=== PATIENT | male | born 1955 | race Caucasian/White ===

== ENCOUNTER 2023-05-17 15:36 | Inpatient (IN) | payer MEDICARE, BC ==
[~2023-05-17] VITALS: Ht 185.4 cm; Wt 110.5 kg
[2023-05-17] MEDS ORDERED: heparin 10,000 units/1 ML INJ IV ONE ×2 (17:00)
[2023-05-17 17:29] LABS: BASOPHILS # (AUTO) 0.1 X10'3 (0-0.2); BASOPHILS % (AUTO) 0.7 % (0-1); EOSINOPHILS # (AUTO) 0.1 X10'3 (0-0.9); EOSINOPHILS % (AUTO) 1.5 % (0-6); HEMATOCRIT 48.4 % (42.0-52.0); HEMOGLOBIN 16.4 g/dl (14.0-17.9); LYMPHOCYTES # (AUTO) 1.6 X10'3 (1.1-4.8); LYMPHOCYTES % (AUTO) 20.1 % (21-51); MEAN CORPUSCULAR HEMOGLOBIN 29.4 PG (27.0-31.0); MEAN CORPUSCULAR HGB CONC 33.9 g/dL (33.0-36.5); MEAN CORPUSCULAR VOLUME 86.8 FL (78-98); MEAN PLATELET VOLUME 8.8 FL (7.4-10.4); MONOCYTES # (AUTO) 0.6 X10'3 (0-0.9); MONOCYTES % (AUTO) 8.2 % (2-12); NEUTROPHILS # (AUTO) 5.4 X10'3 (1.8-7.7); NEUTROPHILS % (AUTO) 69.5 % (42-75); PLATELET COUNT 194 X10'3 (140-440); RED BLOOD COUNT 5.57 X10'6 (4.70-6.10); WHITE BLOOD COUNT 7.7 X10'3 (4.5-11.0)
[2023-05-17] MEDS: heparin 25,000 UNIT/250ml bag 250 ML IV PRN (17:32)
[2023-05-17 17:47] LABS: APTT 28 SECONDS (22-32); INR 0.9 INR; PROTHROMBIN TIME 10.2 SECONDS (9.0-12.0)
[2023-05-17 17:52] LABS: ALANINE AMINOTRANSFERASE 38 U/L (12-78); ALBUMIN 3.7 G/DL (3.4-5.0); ALBUMIN/GLOBULIN RATIO 1.1 (1.1-1.5); ALKALINE PHOSPHATASE 41 IU/L (46-116); ANION GAP 7 (8-16); ASPARTATE AMINO TRANSFERASE 22 U/L (10-37); BILIRUBIN,TOTAL 1.7 MG/DL (0.1-1.0); BLOOD UREA NITROGEN 11 MG/DL (7-18); BUN/CREATININE RATIO 9.9 (10.0-20.0); CALCIUM 8.8 MG/DL (8.5-10.1); CHLORIDE 104 MMOL/L (99-107); CREATININE 1.11 MG/DL (0.60-1.10); GLUCOSE 103 MG/DL (70-104); POTASSIUM 3.8 MMOL/L (3.5-5.1); SODIUM 137 MMOL/L (135-145); TOTAL CARBON DIOXIDE 26.2 MMOL/L (24-32); eCRCL 74 ML/MIN; eGFR 66 ML/MIN
[2023-05-17 18:01] LABS: MAGNESIUM 2.2 MG/DL (1.5-2.4); PRO BRAIN NATRIURETIC PEPTIDE < 30 PG/ML (0-125)
[2023-05-17] MEDS ORDERED: magnesium Cl slow-release 64mg tablet PO PRN (18:10)
[2023-05-17] MEDS ORDERED: magnesium 4gm in 100ml NS 100 ML IV PRN (18:10)
[2023-05-17] MEDS ORDERED: mag hydrox/Alum hydrox/simeth 30ml oral suspension PO PRN (18:10)
[2023-05-17] MEDS ORDERED: acetaminophen 325mg tablet PO PRN (18:10)
[2023-05-17] MEDS ORDERED: potassium Cl 40MEQ/1/2NS 520ml 520 ML IV PRN (18:10)
[2023-05-17] MEDS ORDERED: ondansetron/PF 4mg/2ml inj IV PRN (18:10)
[2023-05-17] MEDS ORDERED: magnesium hydroxide 30ml (MOM) UD suspension PO PRN (18:10)
[2023-05-17] MEDS ORDERED: magnesium 2GM in 50ml NS 50 ML IV PRN (18:10)
[2023-05-17] MEDS ORDERED: potassium Cl 20 mEq SR tablet PO PRN ×2 (18:10)
[2023-05-17] MEDS ORDERED: regadenoson 0.4mg/5ml syringe IV PRN (18:25)
[2023-05-17] MEDS ORDERED: aminophylline 250mg/10ml inj. IV PRN (18:25)
[2023-05-17] MEDS ORDERED: metoprolol tartrate 1mg/ml inj IV PRN (18:25)
[2023-05-17] MEDS ORDERED: nitroGLYCERIN 0.4mg SUBLingual tab SL PRN (18:25)
[2023-05-17] MEDS: K and/or MAG REPLACEMENT MC SCH (20:00)
[2023-05-17 20:19] LABS: BILIRUBIN,URINE NEGATIVE (Neg); CLARITY,URINE CLEAR (Clear); COLOR,URINE YELLOW (Yellow); GLUCOSE, URINE NEGATIVE (Neg); KETONES,URINE NEGATIVE (Neg); LEUKOCYTE ESTERASE ,URINE NEGATIVE (Neg); NITRITES, URINE NEGATIVE (Neg); OCCULT BLOOD,URINE TRACE-INTACT (Neg); PROTEIN,URINE NEGATIVE (Neg); UROBILINOGEN,URINE 0.2 E.U/dL (0.2-1.0)
[2023-05-17 20:21] LABS: UA COLLECTION TYPE CLN CATCH MIDSTREAM
[2023-05-17] MEDS: docusate sod 100mg capsule PO SCH (20:34)
[2023-05-17 20:41] LABS: BACTERIA,URINE NONE SEEN /HPF (Neg); MUCUS STRANDS NONE SEEN /LPF (Neg); RBC,URINE 0-2 /HPF (0-2); SQUAMOUS EPITHELIAL CELL,UR FEW /LPF (FEW); WBC,URINE 0-4 /HPF (0-4)
[2023-05-17 22:00] VITALS: BP 135/96; PULSE 77; RESP 18; TEMP 98; O2SAT 95
[2023-05-18] VITALS (11 sets, daily range): BP systolic 98–115; BP diastolic 66–85; PULSE 61–88; RESP 12–18; TEMP 97.5–98.8; O2SAT 92–98
[2023-05-18] MEDS ORDERED: heparin 10,000 units/1 ML INJ IV PRN (00:25)
[2023-05-18 06:12] LABS: BASOPHILS % (AUTO) 0.7 % (0-1); EOSINOPHILS # (AUTO) 0.3 X10'3 (0-0.9); HEMATOCRIT 46.6 % (42.0-52.0); LYMPHOCYTES # (AUTO) 2.1 X10'3 (1.1-4.8); LYMPHOCYTES % (AUTO) 31.2 % (21-51); MEAN CORPUSCULAR HEMOGLOBIN 29.8 PG (27.0-31.0); MEAN CORPUSCULAR HGB CONC 34.3 g/dL (33.0-36.5); MEAN CORPUSCULAR VOLUME 86.8 FL (78-98); MEAN PLATELET VOLUME 8.8 FL (7.4-10.4); MONOCYTES # (AUTO) 0.6 X10'3 (0-0.9); MONOCYTES % (AUTO) 9.2 % (2-12); NEUTROPHILS # (AUTO) 3.6 X10'3 (1.8-7.7); NEUTROPHILS % (AUTO) 54.9 % (42-75); PLATELET COUNT 176 X10'3 (140-440); RED BLOOD COUNT 5.36 X10'6 (4.70-6.10); RED CELL DISTRIBUTION WIDTH 14.1 % (11.5-14.5); WHITE BLOOD COUNT 6.6 X10'3 (4.5-11.0)
[2023-05-18 06:32] LABS: ALANINE AMINOTRANSFERASE 35 U/L (12-78); ALBUMIN 3.3 G/DL (3.4-5.0); ALKALINE PHOSPHATASE 45 IU/L (46-116); ANION GAP 6 (8-16); ASPARTATE AMINO TRANSFERASE 21 U/L (10-37); BILIRUBIN,TOTAL 1.8 MG/DL (0.1-1.0); BLOOD UREA NITROGEN 13 MG/DL (7-18); BUN/CREATININE RATIO 10.5 (10.0-20.0); CALCIUM 8.8 MG/DL (8.5-10.1); CHLORIDE 105 MMOL/L (99-107); CREATININE 1.24 MG/DL (0.60-1.10); GLUCOSE 112 MG/DL (70-104); POTASSIUM 4.1 MMOL/L (3.5-5.1); SODIUM 139 MMOL/L (135-145); TOTAL CARBON DIOXIDE 27.7 MMOL/L (24-32); TOTAL PROTEIN 6.5 G/DL (6.4-8.2); eCRCL 64 ML/MIN; eGFR 58 ML/MIN
[2023-05-18] MEDS: docusate sod 100mg capsule PO SCH ×2 (07:16→20:00)
[2023-05-18] MEDS: K and/or MAG REPLACEMENT MC SCH ×2 (07:16→20:00)
[2023-05-18] MEDS ORDERED: midazolam 1 mg/ML 2ml injection ONE ×2 (14:47→15:12)
[2023-05-18] MEDS ORDERED: fentaNYL/PF 50MCG/1 ML 2ML syringe ONE (14:47)
[2023-05-18] MEDS ORDERED: iohexol 350MG/ML 100ml bottle IV ONE (14:48)
[2023-05-18] MEDS ORDERED: iohexol 350 MG/ML 50ML vial IV ONE (14:48)
[2023-05-18] MEDS ORDERED: LIDOcaine 1% (10mg/ml)w/preservative inj. 20ml MDV ONE ×2 (14:48→15:17)
[2023-05-18] MEDS: heparin 25,000 UNIT/250ml bag 250 ML IV PRN (14:56)
[2023-05-18] MEDS ORDERED: proCHLORperazine 10 MG/2 ml inj ONE (15:05)
[2023-05-18] MEDS ORDERED: ondansetron/PF 4mg/2ml inj IV PRN (16:20)
[2023-05-18] MEDS ORDERED: OXAZEpam 15mg capsule PO PRN (16:20)
[2023-05-18] MEDS ORDERED: proCHLORperazine 10 MG/2 ml inj IV PRN (16:20)
[2023-05-18] MEDS ORDERED: HYDROcodone/acetaminophen 10/325mg tab PO PRN (16:25)
[2023-05-18] MEDS: HYDROcodone/acetaminophen 5mg/325mg tablet PO PRN ×2 (17:36→22:23)
[2023-05-19 02:00] VITALS: BP 92/61; PULSE 73; RESP 16; TEMP 97.9; O2SAT 95
[2023-05-19 06:00] VITALS: BP 93/68; PULSE 92; RESP 16; TEMP 98.1; O2SAT 95
[2023-05-19 07:50] LABS: EOSINOPHILS # (AUTO) 0.1 X10'3 (0-0.9); HEMATOCRIT 45.8 % (42.0-52.0); HEMOGLOBIN 15.8 g/dl (14.0-17.9); LYMPHOCYTES # (AUTO) 1.5 X10'3 (1.1-4.8); MEAN CORPUSCULAR VOLUME 86.4 FL (78-98); NEUTROPHILS # (AUTO) 7.3 X10'3 (1.8-7.7); NEUTROPHILS % (AUTO) 73.6 % (42-75); RED BLOOD COUNT 5.31 X10'6 (4.70-6.10)
[2023-05-19 07:52] LABS: BASOPHILS % (AUTO) 0.3 % (0-1); EOSINOPHILS % (AUTO) 0.9 % (0-6); LYMPHOCYTES % (AUTO) 15.4 % (21-51); MEAN CORPUSCULAR HEMOGLOBIN 29.7 PG (27.0-31.0); MEAN CORPUSCULAR HGB CONC 34.4 g/dL (33.0-36.5); MEAN PLATELET VOLUME 8.5 FL (7.4-10.4); MONOCYTES % (AUTO) 9.8 % (2-12); PLATELET COUNT 176 X10'3 (140-440)
[2023-05-19 08:00] VITALS: RESP 16; O2SAT 95
[2023-05-19] MEDS: docusate sod 100mg capsule PO SCH (08:00)
[2023-05-19] MEDS: K and/or MAG REPLACEMENT MC SCH (08:00)
[2023-05-19 09:07] LABS: ALANINE AMINOTRANSFERASE 39 U/L (12-78); ALBUMIN 3.3 G/DL (3.4-5.0); ALBUMIN/GLOBULIN RATIO 1.1 (1.1-1.5); ALKALINE PHOSPHATASE 43 IU/L (46-116); ANION GAP 8 (8-16); ASPARTATE AMINO TRANSFERASE 16 U/L (10-37); BILIRUBIN,TOTAL 1.7 MG/DL (0.1-1.0); BLOOD UREA NITROGEN 14 MG/DL (7-18); BUN/CREATININE RATIO 11.1 (10.0-20.0); CALCIUM 8.7 MG/DL (8.5-10.1); CHLORIDE 104 MMOL/L (99-107); CREATININE 1.26 MG/DL (0.60-1.10); GLUCOSE 106 MG/DL (70-104); POTASSIUM 4.3 MMOL/L (3.5-5.1); SODIUM 139 MMOL/L (135-145); TOTAL CARBON DIOXIDE 27.4 MMOL/L (24-32); TOTAL PROTEIN 6.4 G/DL (6.4-8.2); eCRCL 63 ML/MIN; eGFR 57 ML/MIN
== END 2023-05-19 11:30 | disposition home or self-care (01) | DRG 281 ==
LOC: ER 15:37 → ED HOLD 18:11 → PCU 3S 21:20
PROVIDERS: ADMIT Internal Medicine; ATTEND Internal Medicine
PROC: 4A023N7 Measurement of Cardiac Sampling and Pressure, Left Heart, Percutaneous Approach (ICD-10-PCS; principal; 2023-05-18)
PROC: B2111ZZ Fluoroscopy of Multiple Coronary Arteries using Low Osmolar Contrast (ICD-10-PCS; 2023-05-18)
PROC: B2151ZZ Fluoroscopy of Left Heart using Low Osmolar Contrast (ICD-10-PCS; 2023-05-18)
PROC: B41F1ZZ Fluoroscopy of Right Lower Extremity Arteries using Low Osmolar Contrast (ICD-10-PCS; 2023-05-18)
DX: R07.89 Other chest pain (principal); I21.A1 Myocardial infarction type 2; I45.2 Bifascicular block; Z87.891 Personal history of nicotine dependence; Z88.0 Allergy status to penicillin; Z90.49 Acquired absence of other specified parts of digestive tract; Z88.5 Allergy status to narcotic agent; Z91.030 Bee allergy status; Z80.1 Family history of malignant neoplasm of trachea, bronchus and lung; Z80.42 Family history of malignant neoplasm of prostate; Z80.0 Family history of malignant neoplasm of digestive organs
CPT/HCPCS: 36415; 71045; 80053; 81001; 83735; 83880; 84484; 85025; 85610; 85730; 87081; 93005; 93458; 99152; 99285; A6258; C1760; G0378; J0780; J1644; J2250; J3010; J3490; J7030; J7040; Q9967

== ENCOUNTER 2023-08-19 11:45 | Inpatient (IN) | payer MEDICARE, BC ==
[~2023-08-19] VITALS: Ht 185.4 cm; Wt 107.0 kg
[2023-08-19] MEDS ORDERED: NO HOME MEDS (13:25)
[2023-08-26] VITALS (20 sets, daily range): BP systolic 115–138; BP diastolic 71–97; PULSE 80–95; RESP 13–23; TEMP 96.7–98.7; O2SAT 94–99
[2023-08-26] MEDS: famotidine 20mg tablet PO ONE (05:30)
[2023-08-26] MEDS: clindamycin-Cleocin 900mg/D5W 50 ML IV ONE (05:30)
[2023-08-26 10:45] LABS: EOSINOPHILS # (AUTO) 0.2 X10'3 (0-0.9); MONOCYTES # (AUTO) 0.6 X10'3 (0-0.9); PRE OP WHITE BLOOD COUNT 7.2 10'3 (4.8-10.8)
[2023-08-26 10:46] LABS: BASOPHILS % (AUTO) 0.7 % (0-1); EOSINOPHILS % (AUTO) 2.7 % (0-6); LYMPHOCYTES # (AUTO) 1.6 X10'3 (1.1-4.8); LYMPHOCYTES % (AUTO) 22.7 % (21-51); MEAN CORPUSCULAR HEMOGLOBIN 29.5 PG (27.0-31.0); MEAN CORPUSCULAR HGB CONC 34.2 g/dL (33.0-36.5); MEAN CORPUSCULAR VOLUME 86.2 FL (78-98); MEAN PLATELET VOLUME 9.1 FL (7.4-10.4); MONOCYTES % (AUTO) 8.8 % (2-12); NEUTROPHILS # (AUTO) 4.7 X10'3 (1.8-7.7); NEUTROPHILS % (AUTO) 65.1 % (42-75); PRE OP HEMATOCRIT 47.9 % (42.0-52.0); PRE OP HEMOGLOBIN 16.4 g/dL (14.0-17.9); PRE OP PLATELET COUNT 195 X10'3 (140-440); RED BLOOD COUNT 5.55 X10'6 (4.70-6.10)
[2023-08-26 11:01] LABS: PRE OP PROTIME 10.3 SECONDS (9.0-12.0)
[2023-08-26 11:18] LABS: ALBUMIN 3.5 G/DL (3.4-5.0); ALKALINE PHOSPHATASE 42 IU/L (46-116); BLOOD UREA NITROGEN 13 MG/DL (7-18); CHLORIDE 106 MMOL/L (99-107); CREATININE 1.18 MG/DL (0.60-1.10); PRE OP ALT 29 U/L (30-65); PRE OP ANION GAP 13 (8-16); PRE OP AST 17 U/L (10-37); PRE OP BILIRUB, TOTAL 1.5 MG/DL (0.0-1.0); PRE OP GLUCOSE 104 MG/DL (70-104); PRE OP SODIUM 141 MMOL/L (135-145); TOTAL CARBON DIOXIDE 22.4 MMOL/L (24-32); eCRCL 68 ML/MIN; eGFR 61 ML/MIN
[2023-08-26] MEDS ORDERED: heparin 10,000 units/1 ML INJ ONE (11:18)
[2023-08-26] MEDS ORDERED: iohexol 300 MG/1 ML 50ml polymer ONE (11:18)
[2023-08-26] MEDS ORDERED: LIDOcaine 1% (10mg/ml) 2ml vial ONE (11:19)
[2023-08-26] MEDS ORDERED: sevoflurane 250ml liquid IH ONE (13:21)
[2023-08-26] MEDS ORDERED: fentaNYL /PF 50mcg/ml 5ml ampule ONE (13:23)
[2023-08-26] MEDS ORDERED: propofol inj 20 ML IV ONE (13:23)
[2023-08-26] MEDS ORDERED: MIDAZolam 1 MG/ML 5ML VIAL ONE (13:23)
[2023-08-26] MEDS: heparin 10,000 units/1 ML INJ IR ONE (14:00)
[2023-08-26] MEDS ORDERED: dexamethasone sod phosphate 4mg/ml inj. ONE (14:22)
[2023-08-26] MEDS ORDERED: rocuronium 10mg/ml inj IV ONE ×2 (14:22→15:41)
[2023-08-26] MEDS ORDERED: ePHEDrine 50MG/ML INJ. ONE (14:22)
[2023-08-26] MEDS ORDERED: ringers solution, lacted 1,000 ML IV SCH (14:55)
[2023-08-26] MEDS ORDERED: ondansetron/PF 4mg/2ml inj IV PRN (14:55)
[2023-08-26] MEDS ORDERED: proCHLORperazine 10 MG/2 ml inj IV PRN (14:55)
[2023-08-26] MEDS ORDERED: meperidine/PF 25mg/ml syringe IV PRN ×2 (14:55)
[2023-08-26] MEDS ORDERED: morphine 2 MG/ML inj. syringe IV PRN (14:55)
[2023-08-26] MEDS ORDERED: heparin 1,000unit/ml 10ml vial 10 ML ONE ×2 (15:43)
[2023-08-26] MEDS ORDERED: protamine sulfate 10mg/ml inj. ONE (16:54)
[2023-08-26] MEDS ORDERED: albumin (Human) 5% 250ml 250 ML IV ONE ×2 (16:55→16:56)
[2023-08-26] MEDS ORDERED: neostigmine methylsulfate 1 MG/ML 10ml vial ONE (17:26)
[2023-08-26] MEDS ORDERED: glycopyrrolate 0.2mg/ml inj ONE (17:26)
[2023-08-26] MEDS ORDERED: ondansetron/PF 4mg/2ml inj ONE (17:26)
[2023-08-26 18:04] LABS: BASOPHILS # (AUTO) 0.1 X10'3 (0-0.2); BASOPHILS % (AUTO) 0.4 % (0-1); EOSINOPHILS # (AUTO) 0.1 X10'3 (0-0.9); EOSINOPHILS % (AUTO) 0.8 % (0-6); HEMATOCRIT 41.4 % (42.0-52.0); HEMOGLOBIN 13.7 g/dl (14.0-17.9); LYMPHOCYTES # (AUTO) 1.6 X10'3 (1.1-4.8); LYMPHOCYTES % (AUTO) 11.7 % (21-51); MEAN CORPUSCULAR HEMOGLOBIN 28.7 PG (27.0-31.0); MEAN CORPUSCULAR HGB CONC 33.1 g/dL (33.0-36.5); MEAN CORPUSCULAR VOLUME 86.6 FL (78-98); MEAN PLATELET VOLUME 8.5 FL (7.4-10.4); MONOCYTES # (AUTO) 0.5 X10'3 (0-0.9); MONOCYTES % (AUTO) 3.8 % (2-12); NEUTROPHILS # (AUTO) 11.2 X10'3 (1.8-7.7); NEUTROPHILS % (AUTO) 83.3 % (42-75); PLATELET COUNT 174 X10'3 (140-440); RED BLOOD COUNT 4.77 X10'6 (4.70-6.10); RED CELL DISTRIBUTION WIDTH 14.5 % (11.5-14.5); WHITE BLOOD COUNT 13.5 X10'3 (4.5-11.0)
[2023-08-26] MEDS ORDERED: NORepinephrine 8mg/ 250ml NS 250 ML IV PRN (18:05)
[2023-08-26 18:06] LABS: ABG BASE EXCESS -4.7 mmol/L (-2.0-2.0); ABG HCO3 20.2 mmol/L (22.0-26.0); ABG OXYGEN SATURATION 97.7 % (94-97); ABG PCO2 (T) 35.4 mmHg (35.0-48.0); ABG PH (T) 7.369 (7.340-7.440); ABG PO2 (T) 99.5 mmHg (75.0-100.0); FCOHb 0.9 % (0.0-3.9); FHHb 2.3 % (0.0-5.0); FLOW 6 L/min; FMetHb 0.3 % (0.0-1.5); FO2Hb 96.5 % (94-97); MODE MASK - SIMPLE; TOTAL HEMOGLOBIN 14.3 G/dl (14.0-17.9)
[2023-08-26] MEDS ORDERED: niCARDipine-NS 40mg/200ml IVPB 200 ML IV PRN (18:10)
[2023-08-26] MEDS ORDERED: naloxone 0.4 mg/ml inj IV PRN (18:10)
[2023-08-26 18:15] LABS: INR 1.1 INR; PROTHROMBIN TIME 11.7 SECONDS (9.0-12.0)
[2023-08-26] MEDS: meperidine/PF 25mg/ml syringe IV PRN (18:18)
[2023-08-26 18:37] LABS: APTT > 139 SECONDS (22-32)
[2023-08-26] MEDS: morphine 4 MG/ML inj SYRINge IV PRN (19:13)
[2023-08-26] MEDS: ringers solution, lacted 1,000 ML IV SCH (20:21)
[2023-08-26] MEDS: clindamycin 600mg/D5W 50ml 50 ML IV SCH (21:15)
[2023-08-26] MEDS: HYDROmorphone inj. 0.5 MG/0.5 ML DISP.SYRIN IV PRN (21:48)
[2023-08-27] VITALS (26 sets, daily range): BP systolic 99–128; BP diastolic 54–82; PULSE 77–110; RESP 12–21; TEMP 98.2; O2SAT 93–97
[2023-08-27] MEDS: HYDROmorph/NS 0.2 mg/ml PCA 100 ML IV SCH (00:41)
[2023-08-27 03:13] LABS: BASOPHILS % (AUTO) 0.1 % (0-1); EOSINOPHILS % (AUTO) 0 % (0-6); HEMATOCRIT 39.6 % (42.0-52.0); HEMOGLOBIN 13.6 g/dl (14.0-17.9); LYMPHOCYTES # (AUTO) 0.5 X10'3 (1.1-4.8); MEAN CORPUSCULAR HGB CONC 34.3 g/dL (33.0-36.5); MEAN CORPUSCULAR VOLUME 84.6 FL (78-98); MEAN PLATELET VOLUME 8.8 FL (7.4-10.4); MONOCYTES # (AUTO) 0.9 X10'3 (0-0.9); MONOCYTES % (AUTO) 7.5 % (2-12); NEUTROPHILS # (AUTO) 10.6 X10'3 (1.8-7.7); NEUTROPHILS % (AUTO) 88.4 % (42-75); PLATELET COUNT 182 X10'3 (140-440); RED BLOOD COUNT 4.68 X10'6 (4.70-6.10); WHITE BLOOD COUNT 11.9 X10'3 (4.5-11.0)
[2023-08-27 03:18] LABS: ALBUMIN 3.2 G/DL (3.4-5.0); ANION GAP 12 (8-16); BLOOD UREA NITROGEN 12 MG/DL (7-18); BUN/CREATININE RATIO 9.3 (10.0-20.0); CALCIUM 7.9 MG/DL (8.5-10.1); CHLORIDE 104 MMOL/L (99-107); CREATININE 1.29 MG/DL (0.60-1.10); GLUCOSE 176 MG/DL (70-104); SODIUM 139 MMOL/L (135-145); TOTAL CARBON DIOXIDE 23.4 MMOL/L (24-32); eCRCL 62 ML/MIN; eGFR 55 ML/MIN
[2023-08-27] MEDS: ondansetron/PF 4mg/2ml inj IV PRN (07:22)
[2023-08-28] VITALS (7 sets, daily range): BP systolic 99–123; BP diastolic 63–74; PULSE 91–105; RESP 13–18; TEMP 97–98.8; O2SAT 92–96
[2023-08-28 06:57] LABS: BASOPHILS % (AUTO) 0.2 % (0-1); EOSINOPHILS % (AUTO) 0.2 % (0-6); HEMOGLOBIN 12.2 g/dl (14.0-17.9); LYMPHOCYTES # (AUTO) 0.9 X10'3 (1.1-4.8); LYMPHOCYTES % (AUTO) 7.6 % (21-51); MEAN CORPUSCULAR HGB CONC 33.9 g/dL (33.0-36.5); MEAN CORPUSCULAR VOLUME 85.3 FL (78-98); MEAN PLATELET VOLUME 8.4 FL (7.4-10.4); MONOCYTES # (AUTO) 1.4 X10'3 (0-0.9); MONOCYTES % (AUTO) 12.1 % (2-12); NEUTROPHILS % (AUTO) 79.9 % (42-75); PLATELET COUNT 160 X10'3 (140-440); RED BLOOD COUNT 4.22 X10'6 (4.70-6.10); RED CELL DISTRIBUTION WIDTH 14.2 % (11.5-14.5); WHITE BLOOD COUNT 11.3 X10'3 (4.5-11.0)
[2023-08-28 07:33] LABS: ALBUMIN 2.8 G/DL (3.4-5.0); ANION GAP 8 (8-16); BLOOD UREA NITROGEN 13 MG/DL (7-18); BUN/CREATININE RATIO 11.9 (10.0-20.0); CALCIUM 8.1 MG/DL (8.5-10.1); CHLORIDE 104 MMOL/L (99-107); CREATININE 1.09 MG/DL (0.60-1.10); GLUCOSE 139 MG/DL (70-104); POTASSIUM 3.9 MMOL/L (3.5-5.1); SODIUM 139 MMOL/L (135-145); eCRCL 73 ML/MIN; eGFR 67 ML/MIN
[2023-08-28] MEDS ORDERED: traMADol 50MG tablet PO PRN (13:20)
[2023-08-28] MEDS: gabapentin 400mg capsule PO SCH (15:20)
[2023-08-28] MEDS: magnesium hydroxide 30ml (MOM) UD suspension PO SCH (21:21)
[2023-08-28] MEDS: enoxaparin 40mg/0.4ml syringe SUBCUT SCH (21:22)
[2023-08-29] VITALS (7 sets, daily range): BP systolic 100–137; BP diastolic 64–90; PULSE 80–101; RESP 16–25; TEMP 97.3–99; O2SAT 93–98
[2023-08-29 07:11] LABS: BASOPHILS % (AUTO) 0.2 % (0-1); EOSINOPHILS % (AUTO) 0.3 % (0-6); HEMATOCRIT 34.7 % (42.0-52.0); HEMOGLOBIN 12.1 g/dl (14.0-17.9); LYMPHOCYTES # (AUTO) 0.9 X10'3 (1.1-4.8); LYMPHOCYTES % (AUTO) 9.2 % (21-51); MEAN CORPUSCULAR HEMOGLOBIN 29.7 PG (27.0-31.0); MEAN CORPUSCULAR HGB CONC 34.9 g/dL (33.0-36.5); MEAN CORPUSCULAR VOLUME 85.1 FL (78-98); MEAN PLATELET VOLUME 8.6 FL (7.4-10.4); MONOCYTES # (AUTO) 1.2 X10'3 (0-0.9); NEUTROPHILS # (AUTO) 7.8 X10'3 (1.8-7.7); NEUTROPHILS % (AUTO) 78.3 % (42-75); PLATELET COUNT 166 X10'3 (140-440); RED BLOOD COUNT 4.08 X10'6 (4.70-6.10); RED CELL DISTRIBUTION WIDTH 14.2 % (11.5-14.5)
[2023-08-29 07:34] LABS: ALBUMIN 2.5 G/DL (3.4-5.0); ANION GAP 8 (8-16); BLOOD UREA NITROGEN 11 MG/DL (7-18); BUN/CREATININE RATIO 11.2 (10.0-20.0); CALCIUM 8.2 MG/DL (8.5-10.1); CHLORIDE 103 MMOL/L (99-107); CREATININE 0.98 MG/DL (0.60-1.10); GLUCOSE 121 MG/DL (70-104); POTASSIUM 3.9 MMOL/L (3.5-5.1); SODIUM 140 MMOL/L (135-145); TOTAL CARBON DIOXIDE 29.4 MMOL/L (24-32); eCRCL 82 ML/MIN; eGFR 76 ML/MIN
[2023-08-29] MEDS: aspirin 81mg, enteric-coated 1 TAB TABLET.DR PO SCH (08:26)
[2023-08-29] MEDS: levoFLOXACIN-Levaquin 750MG/D5 150 ML IV SCH (08:26)
[2023-08-29] MEDS ORDERED: HYDROcodone/acetaminophen 10/325mg tab PO PRN (11:35)
[2023-08-29] MEDS: HYDROcodone/acetaminophen 10/325mg tab PO PRN (12:13)
[2023-08-29] MEDS: PCA WASTE DOCUMENTATION 1 MG ML MC SCH (12:30)
[2023-08-29] MEDS: magnesium citrate 296ml oral solution PO ONE (15:56)
[2023-08-29] MEDS: DOXYCYCLINE 100MG CAPSULE PO SCH (16:34)
[2023-08-29] MEDS: metoclopramide 5 mg/ml inj IV SCH (20:05)
[2023-08-29] MEDS: sennosides/docusate sodium tablet PO SCH (21:37)
[2023-08-29] MEDS: bisacodyl 10mg suppository rectal RC STA (21:38)
[2023-08-30] VITALS (9 sets, daily range): BP systolic 95–114; BP diastolic 65–80; PULSE 76–99; RESP 14–21; TEMP 97–97.9; O2SAT 91–97
[2023-08-30 08:51] LABS: BASOPHILS % (AUTO) 0.3 % (0-1); EOSINOPHILS # (AUTO) 0.2 X10'3 (0-0.9); EOSINOPHILS % (AUTO) 1.6 % (0-6); HEMATOCRIT 37.3 % (42.0-52.0); HEMOGLOBIN 12.7 g/dl (14.0-17.9); LYMPHOCYTES # (AUTO) 1.1 X10'3 (1.1-4.8); MEAN CORPUSCULAR HGB CONC 34.1 g/dL (33.0-36.5); MEAN CORPUSCULAR VOLUME 85.3 FL (78-98); MEAN PLATELET VOLUME 8.8 FL (7.4-10.4); MONOCYTES # (AUTO) 1.4 X10'3 (0-0.9); MONOCYTES % (AUTO) 13.2 % (2-12); NEUTROPHILS # (AUTO) 7.6 X10'3 (1.8-7.7); NEUTROPHILS % (AUTO) 73.9 % (42-75); PLATELET COUNT 219 X10'3 (140-440); RED BLOOD COUNT 4.38 X10'6 (4.70-6.10); RED CELL DISTRIBUTION WIDTH 14.3 % (11.5-14.5); WHITE BLOOD COUNT 10.3 X10'3 (4.5-11.0)
[2023-08-30 09:07] LABS: ALBUMIN 2.3 G/DL (3.4-5.0); ANION GAP 5 (8-16); BLOOD UREA NITROGEN 16 MG/DL (7-18); BUN/CREATININE RATIO 15.5 (10.0-20.0); CHLORIDE 102 MMOL/L (99-107); CREATININE 1.03 MG/DL (0.60-1.10); GLUCOSE 112 MG/DL (70-104); POTASSIUM 3.9 MMOL/L (3.5-5.1); SODIUM 138 MMOL/L (135-145); TOTAL CARBON DIOXIDE 31.3 MMOL/L (24-32); eCRCL 78 ML/MIN; eGFR 72 ML/MIN
[2023-08-30] MEDS: bisacodyl 10mg suppository rectal RC SCH (09:51)
[2023-08-31] VITALS (8 sets, daily range): BP systolic 101–114; BP diastolic 67–83; PULSE 83–96; RESP 13–18; TEMP 97.3–98.9; O2SAT 93–100
[2023-08-31 07:44] LABS: BASOPHILS # (AUTO) 0.1 X10'3 (0-0.2); BASOPHILS % (AUTO) 0.9 % (0-1); EOSINOPHILS # (AUTO) 0.4 X10'3 (0-0.9); EOSINOPHILS % (AUTO) 5.6 % (0-6); HEMATOCRIT 37.1 % (42.0-52.0); HEMOGLOBIN 12.6 g/dl (14.0-17.9); LYMPHOCYTES # (AUTO) 1.4 X10'3 (1.1-4.8); LYMPHOCYTES % (AUTO) 17.8 % (21-51); MEAN CORPUSCULAR VOLUME 85.2 FL (78-98); MEAN PLATELET VOLUME 8.4 FL (7.4-10.4); MONOCYTES # (AUTO) 1.2 X10'3 (0-0.9); MONOCYTES % (AUTO) 14.8 % (2-12); NEUTROPHILS # (AUTO) 4.7 X10'3 (1.8-7.7); NEUTROPHILS % (AUTO) 60.9 % (42-75); PLATELET COUNT 244 X10'3 (140-440); RED BLOOD COUNT 4.36 X10'6 (4.70-6.10); RED CELL DISTRIBUTION WIDTH 14.1 % (11.5-14.5); WHITE BLOOD COUNT 7.8 X10'3 (4.5-11.0)
[2023-08-31 07:54] LABS: ALBUMIN 2.6 G/DL (3.4-5.0); ANION GAP 8 (8-16); BLOOD UREA NITROGEN 15 MG/DL (7-18); BUN/CREATININE RATIO 14.9 (10.0-20.0); CALCIUM 8.1 MG/DL (8.5-10.1); CHLORIDE 103 MMOL/L (99-107); CREATININE 1.01 MG/DL (0.60-1.10); GLUCOSE 109 MG/DL (70-104); POTASSIUM 3.9 MMOL/L (3.5-5.1); SODIUM 139 MMOL/L (135-145); eCRCL 79 ML/MIN; eGFR 73 ML/MIN
[2023-08-31] MEDS: polyethylene glycol 3350 17gm powd pack PO PRN (11:02)
[2023-09-01 02:00] VITALS: BP 97/60; PULSE 83; RESP 20; TEMP 97.6; O2SAT 90
[2023-09-01 07:00] VITALS: BP 127/65; PULSE 85; RESP 17; TEMP 97.9; O2SAT 94
[2023-09-01 12:07] VITALS: BP 141/63; PULSE 89; RESP 19; TEMP 98.2; O2SAT 95
[2023-09-01 15:00] VITALS: BP 111/69; PULSE 98; RESP 15; TEMP 98; O2SAT 95
[2023-09-01 22:00] VITALS: BP 117/69; PULSE 85; RESP 21; TEMP 97.8; O2SAT 94
[2023-09-02 02:00] VITALS: BP 111/68; PULSE 82; RESP 16; TEMP 97.7; O2SAT 93
[2023-09-02 07:00] VITALS: BP 112/68; PULSE 79; RESP 16; TEMP 97.9; O2SAT 94
[2023-09-02 07:18] LABS: BASOPHILS # (AUTO) 0.1 X10'3 (0-0.2); BASOPHILS % (AUTO) 0.7 % (0-1); EOSINOPHILS # (AUTO) 0.3 X10'3 (0-0.9); EOSINOPHILS % (AUTO) 3.8 % (0-6); HEMATOCRIT 33.5 % (42.0-52.0); HEMOGLOBIN 11.5 g/dl (14.0-17.9); LYMPHOCYTES # (AUTO) 1.6 X10'3 (1.1-4.8); MEAN CORPUSCULAR HEMOGLOBIN 29.2 PG (27.0-31.0); MEAN CORPUSCULAR HGB CONC 34.4 g/dL (33.0-36.5); MEAN CORPUSCULAR VOLUME 84.8 FL (78-98); MEAN PLATELET VOLUME 7.8 FL (7.4-10.4); MONOCYTES # (AUTO) 0.9 X10'3 (0-0.9); MONOCYTES % (AUTO) 12.1 % (2-12); NEUTROPHILS % (AUTO) 63.4 % (42-75); PLATELET COUNT 259 X10'3 (140-440); RED BLOOD COUNT 3.95 X10'6 (4.70-6.10); RED CELL DISTRIBUTION WIDTH 14.4 % (11.5-14.5); WHITE BLOOD COUNT 7.8 X10'3 (4.5-11.0)
[2023-09-02 11:18] VITALS: BP 116/79; PULSE 94; RESP 18; TEMP 98.9; O2SAT 94
== END 2023-09-02 13:08 | disposition home or self-care (01) | DRG 271 ==
LOC: PAS IN 08-26 09:30 → CICU 2S 08-26 19:32 → PCU 3S 08-27 23:34
PROVIDERS: ADMIT Surgery; ATTEND Surgery
PROC: 04CK0ZZ Extirpation of Matter from Right Femoral Artery, Open Approach (ICD-10-PCS; 2023-08-26)
PROC: 04CC0ZZ Extirpation of Matter from Right Common Iliac Artery, Open Approach (ICD-10-PCS; 2023-08-26)
PROC: 041C0JH Bypass Right Common Iliac Artery to Right Femoral Artery with Synthetic Substitute, Open Approach (ICD-10-PCS; principal; 2023-08-26 13:21)
DX: I73.9 Peripheral vascular disease, unspecified (principal); I74.3 Embolism and thrombosis of arteries of the lower extremities; I74.5 Embolism and thrombosis of iliac artery; I74.8 Embolism and thrombosis of other arteries; Z91.030 Bee allergy status; Z88.5 Allergy status to narcotic agent; Z88.0 Allergy status to penicillin; Z88.8 Allergy status to other drugs, medicaments and biological substances; Z91.018 Allergy to other foods
CPT/HCPCS: 36415; 36600; 74018; 80048; 80053; 82803; 85018; 85025; 85610; 85730; 86885; 86900; 86901; 87081; 88304; 88305; 93306; 93922; 93971; 97110; 97161; 97530; A4615; A4618; A6258; A6449; A6455; A7000; C1758; C1768; G0378; J1100; J1170; J1644; J1650; J1956; J2175; J2250; J2270; J2405; J2704; J2710; J2720; J2765; J3010; J3490; J7030; J7040; J7050; J7120; P9045; Q9967

== ENCOUNTER 2023-09-02 15:42 | Outpatient (CLI) | payer MEDICARE, BC ==
[~2023-09-02 15:42] MED LIST: NO HOME MEDS
== END 2023-09-02 23:59 | disposition home or self-care (01) ==
LOC: VAS 15:42
PROVIDERS: ATTEND Surgery
DX: R22.41 Localized swelling, mass and lump, right lower limb (principal)
CPT/HCPCS: 93971

== ENCOUNTER 2023-09-12 12:34 | Outpatient (CLI) | payer MEDICARE, BC | END 2023-09-12 23:59 | disposition home or self-care (01) | LOC: RAD 12:34 | PROVIDERS: ATTEND Surgery | DX: R10.30 Lower abdominal pain, unspecified (principal); Z98.890 Other specified postprocedural states | CPT/HCPCS: 76882 ==

== ENCOUNTER 2023-09-13 08:30 | Outpatient (CLI) | payer MEDICARE, BC | END 2023-09-13 23:59 | disposition home or self-care (01) | LOC: VAS 08:30 | PROVIDERS: ATTEND Surgery | DX: R22.41 Localized swelling, mass and lump, right lower limb (principal); M79.661 Pain in right lower leg | CPT/HCPCS: 93971 ==